=== PATIENT | male | born 1960 | race Caucasian/White ===

== ENCOUNTER → 2018-06-03 16:47 | Outpatient (CLI) | payer OTHER, MEDICARE, SELFPAY ==
[2018-06-03 17:44] LABS: Amphetamine/Metha Screen,Urine Negative ng/mL (<1000); Barbiturates Screen,Urine Negative ng/mL (<200); Benzodiazepines Screen,Urine Negative ng/mL (<200); Cannabinoid Screen,Urine Negative ng/mL (<50); Cocaine Screen,Urine Negative ng/mL (<300); Methadone Screen,Urine Negative ng/mL (<300); Opiate Screen,Urine Positive ng/mL (<300); Phencyclidine Screen,Urine Negative ng/mL (<25)
[2018-06-07 18:27] LABS: Gabapentin,Urine >800.0 ug/mL (.)
[2018-06-15 23:06] LABS: Codeine Negative (Cutoff=100); Hydrocodone Positive (.); Hydromorphone Negative (Cutoff=100); Morphine Negative (Cutoff=100)
[2018-06-16 05:24] LABS: Opiates Positive (.)
== END ==
PROVIDERS: PCP Physical Medicine & Rehabilitation; Visit Provider Physical Medicine & Rehabilitation
DX: M54.5 Low back pain (principal)
CPT/HCPCS: 80305; 80307; 80361; 80365; G0480

== ENCOUNTER → 2019-05-06 14:56 | Outpatient (CLI) | payer OTHER, SELFPAY ==
[2019-05-06 16:21] LABS: Amphetamine/Metha Screen,Urine Negative ng/mL (<1000); Barbiturates Screen,Urine Negative ng/mL (<200); Benzodiazepines Screen,Urine Negative ng/mL (<200); Cannabinoid Screen,Urine Negative ng/mL (<50); Cocaine Screen,Urine Negative ng/mL (<300); Methadone Screen,Urine Negative ng/mL (<300); Opiate Screen,Urine Positive ng/mL (<300); Phencyclidine Screen,Urine Negative ng/mL (<25)
[2019-05-10 17:00] LABS: Gabapentin,Urine >800.0 ug/mL (.)
== END ==
PROVIDERS: Visit Provider Physical Medicine & Rehabilitation
DX: M54.5 Low back pain (principal)
CPT/HCPCS: 80305; 80307

== ENCOUNTER → 2020-04-13 16:34 | Outpatient (CLI) | payer OTHER, SELFPAY ==
[2020-04-13 20:31] LABS: Amphetamine/Metha Screen,Urine Negative ng/ml (<1000); Benzodiazepines Screen,Urine Negative ng/ml (<200)
[2020-04-13 20:32] LABS: Barbiturates Screen,Urine Negative ng/ml (<200); Methadone Screen,Urine Negative ng/ml (<300)
[2020-04-13 20:33] LABS: Cannabinoid Screen,Urine Negative ng/ml (<50)
[2020-04-13 20:34] LABS: Cocaine Screen,Urine Negative ng/ml (<300); Opiate Screen,Urine Positive ng/ml (<300)
[2020-04-13 20:35] LABS: Phencyclidine Screen,Urine Negative ng/ml (<25)
[2020-04-20 13:28] LABS: Gabapentin,Urine >800.0 ug/mL (.)
== END ==
PROVIDERS: Visit Provider Physical Medicine & Rehabilitation
DX: M54.5 Low back pain (principal); Z79.899 Other long term (current) drug therapy; Z02.89 Encounter for other administrative examinations
CPT/HCPCS: 80305; 80307

== ENCOUNTER → 2021-04-24 11:03 | Outpatient (CLI) | payer OTHER, SELFPAY ==
[2021-04-27 00:04] LABS: Gabapentin,Urine >800.0 ug/mL (.)
== END ==
PROVIDERS: Visit Provider Physical Medicine & Rehabilitation
DX: M54.5 Low back pain (principal)
CPT/HCPCS: 80307

== ENCOUNTER 2021-11-24 12:23 | Emergency (ER) | payer MEDICARE, SELFPAY ==
--- NOTE | 2021-11-24 13:59 | XR_ITS ---
FINAL REPORT CLINICAL HISTORY: cough, sob FINDINGS: TWO VIEWS OF THE CHEST The heart is normal in size. The mediastinum is unremarkable. There is a small hiatal hernia. The lungs are clear. There is no pneumothorax. IMPRESSION: No acute cardiopulmonary process. Reviewed, Interpreted and Dictated by Saji Mason MD Transcribed by Gi Ricks Authenticated by Saji Mason MD on 11/24/2021 03:40:33 PM [facility]
[2021-11-24 14:03] VITALS: BP 162/98; PULSE 106; RESP 21; TEMP 36.7; O2SAT 95; BMI 34.7
--- NOTE | 2021-11-24 14:25 | HMH.EDUTC ---
[facility] [place] Disposition Clinical Impression: Acute bronchitis Qualifiers: Bronchitis organism: unspecified organism Qualified Code(s): J20.9 - Acute bronchitis, unspecified Sinusitis Qualifiers: Sinusitis location: unspecified location Chronicity: acute Recurrence: non-recurrent Qualified Code(s): J01.90 - Acute sinusitis, unspecified Disposition: Home, Self-Care Condition on Discharge: Good Instructions: Acute Bronchitis, DI for Sinusitis, DI for Acute Bronchitis Additional Instructions: Drink plenty of fluids. Take tylenol or ibuprofen for pain or fever. Take the medications as directed. Follow up with your regular doctor. GO TO THE ER FOR ANY WORSENING SYMPTOMS Prescriptions: Benzonatate [Benzonatate 100mg cap] 100 mg PO TIDP PRN #30 cap PRN Reason: Cough Transmission Status: Received by [facility] # methylPREDNISolone [Medrol] 4 mg PO DIRECTED 6 Days #21 packet Transmission Status: Received by [facility] # Azithromycin [Z-Zander 250mg Tab*] 250 mg PO UD DOSE PK #6 tab Transmission Status: Received by [facility] # Referrals: Provider,Referral, [Primary Care Provider] - Time of Disposition: 14:39 Medical Decision Making - Medical Records Medical records reviewed: No: I reviewed the patient's medical records. - Declan Inquiry Pt receiving controlled substance: No Vital Signs: 11/24/21 14:03 11/24/21 14:44 Temperature 98.1 F 98.1 F Temperature Source Oral Pulse Rate 106 H Pulse Rate [Left] 106 H Respiratory Rate 21 21 Blood Pressure 162/98 H Blood Pressure [Right Arm] 162/98 H Blood Pressure Mean [Right Arm] 119 02 Sat by Pulse Oximetry 95 [facility] [place] HPI - General Stated complaint: chest weezing Time Seen by Provider: 11/24/21 14:26 Mode of Arrival: Ambulatory Source of Information: Patient Limitations: No Limitations Description of Symptoms (Recalled from Triage Doc. by RN): pt c/o chest congestion, nasal drainage and difficulty breathing while laying down. HEENT Symptoms (Recalled from RN notes): Yes Resp Symptoms (Recalled from RN notes): Yes Skin Symptoms (Recalled from RN notes): No MS Symptoms (Recalled from RN notes): No Functional Status (Recalled from RN notes): wnl - History of Present Illness Provider Complaint: He states that for the past 2 weeks he has had chest congestion, wheezing, a productive cough. - Related Data Previous Rx's Medication Instructions Recorded Azithromycin [Z-Zander 250mg Tab*] 250 mg PO UD DOSE PK #6 tab 11/24/21 Benzonatate [Benzonatate 100mg 100 mg PO TIDP PRN #30 cap 11/24/21 cap] methylPREDNISolone [Medrol] 4 mg PO DIRECTED 6 Days #21 11/24/21 packet Allergies Allergy/AdvReac Type Severity Reaction Status Date / Time PENICILLIN Allergy Intermediate I-ITCHING Uncoded 09/17/17 15:10 - Worker's Comp Is this a Worker's Comp case?: No [facility] History - Hepatitis A Screen Drug use history?: No High risk sexual behaviors?: No History of sexually transmitted infection?: No Currently employed?: No Childcare worker?: No Do you have indoor plumbing?: Yes Do you have electricity?: Yes Attestation statement:: This patient has been screened for Hepatitis A risk factors. I have reviewed the patient's past medical history: Yes ROS Obtained: Yes All systems reviewed & no additional complaints - Constitutional Constitutional: Reports system reviewed and no additional complaints, except as docu - Eyes Eyes: Reports system reviewed and no additional complaints, except as docu - ENT Ears, Nose, Mouth, and Throat: Reports system reviewed and no additional complaints, except as docu - Cardiovascular Cardiovascular: Reports system reviewed and no additional complaints, except as docu - Respiratory Respiratory: Reports system reviewed and no additional complaints, except as docu Physical Exam - General General appearance: alert, in no apparent distress
[2021-11-24 14:44] VITALS: BP 162/98; PULSE 106; RESP 21; TEMP 36.7
== END 2021-11-24 14:45 | disposition home or self-care (01) ==
PROVIDERS: Emergency Provider Nurse Practitioner Family
DX: J20.9 Acute bronchitis, unspecified (principal); J01.90 Acute sinusitis, unspecified
CPT/HCPCS: G0463; 71046; 99202

== ENCOUNTER → 2022-02-08 10:01 | Outpatient (POV) | payer OTHER, SELFPAY ==
[2022-02-08 10:21] VITALS: BP 155/103; PULSE 107; RESP 18; TEMP 36.7; O2SAT 100; BMI 87.1
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
== END ==
PROVIDERS: Visit Provider Student in an Organized Health Care Education/Training Program
DX: M79.604 Pain in right leg (principal); Z89.512 Acquired absence of left leg below knee
CPT/HCPCS: 99202; G0463

== ENCOUNTER 2023-07-27 18:45 | Emergency (ER) | payer SELFPAY ==
[2023-07-27 18:47] VITALS: BP 146/91; PULSE 128; RESP 16; TEMP 36.8; O2SAT 97; BMI 36.5
--- NOTE | 2023-07-27 19:01 | XR_ITS ---
PROCEDURE INFORMATION: Exam: XR Chest Exam date and time: 07/27/2023 7:25 PM Age: 63 years old Clinical indication: Dyspnea TECHNIQUE: Imaging protocol: Radiologic exam of the chest. Views: 1 view. COMPARISON: CR XR CHEST 2V 11/24/2021 2:02 PM FINDINGS: Lungs: Normal. Pleural spaces: Normal No pleural effusion. No pneumothorax. Heart/Mediastinum: Normal. No cardiomegaly. Vasculature: Tortuous atherosclerotic thoracic aorta. Bones/joints: Unremarkable. IMPRESSION: No acute findings.
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
--- NOTE | 2023-07-27 19:12 | ECG_ITS ---
APPROVED REPORT Exam: Resting ECG HR:122 bpm ECG Measurements Heart Rate 122 AXES DE 169 P 63 QRSd 105 QRS -78 QT 330 T 49 QTc 402 Conclusion SINUS TACHYCARDIA LEFT AXIS DEVIATION [QRS AXIS < -30] PATTERN CONSISTENT WITH PULMONARY DISEASE INCOMPLETE RIGHT BUNDLE BRANCH BLOCK [90+ ms QRS DURATION, TERMINAL R IN V1/V2, 40+ ms S IN I/aVL/V4/V5/V6] ABNORMAL ECG UNCONFIRMED REPORT Electronically signed by : Gaston Marino MD 07/28/2023 08:37:38
[2023-07-27 19:25] LABS: Chloride 114 mmol/L (98-107)
[2023-07-27 19:26] LABS: Sodium 147 mmol/L (136-145)
[2023-07-27 19:28] LABS: Alanine Aminotransferase 58 U/L (12-78); Alkaline Phosphatase 74 U/L (38-126); Aspartate Amino Transferase 72 U/L (17-59); Bilirubin,Total 0.6 mg/dl (0.2-1.3); Blood Urea Nitrogen 11 mg/dl (9-20); Creatinine Clearance Estimated 118 mL/min (50-200); Estimated Glomerular Filt Rate 76 ml/min (>60); GFR (African American) 92 ML/MIN (>60)
[2023-07-27 19:29] LABS: Albumin Level 4.8 g/dl (3.5-5.0); Albumin/Globulin Ratio 1.3 (1.1-1.8); Carbon Dioxide 21 mmol/L (22.0-30.0); Globulin 3.6 g/dL (1.3-3.2); Glucose 122 mg/dl (74-100); Total Protein,Serum 8.4 g/dl (6.3-8.2)
[2023-07-27 19:31] LABS: Basophils % 0.6 % (0.1-2.0); Eosinophils # 0.1 K/mm3 (0.0-0.4); Ethyl Alcohol 171 mg/dl (0-10); Hematocrit 50.2 % (42.0-52.0); Hemoglobin 16.8 g/dL (14.1-18.0); Lymphocytes # 2.3 K/mm3 (0.7-4.5); Lymphocytes % 30.6 % (10-50); Mean Corpuscular HGB Conc 33.5 g/dL (31.8-35.4); Mean Corpuscular Hemoglobin 31.6 pg (27.0-31.2); Mean Corpuscular Volume 94.4 fl (80-94); Mean Platelet Volume 8.6 fl (7.4-10.4); Monocytes # 0.5 K/mm3 (0.1-1.0); Monocytes % 6.1 % (1.7-9.3); Neutrophils # 4.6 K/mm3 (1.8-7.8); Neutrophils % 61.7 % (37.0-80.0); Platelet Count 280 K/mm3 (142-424); Red Blood Count 5.32 M/mm3 (4.60-6.20); Red Cell Distribution Width 13.8 % (11.5-17.5); White Blood Count 7.4 K/mm3 (4.8-10.8)
--- NOTE | 2023-07-27 19:44 | PC.NURSE ---
in room talking with patient at this time.
[2023-07-27 19:53] VITALS: BP 137/87; PULSE 107; RESP 16; TEMP 36.8; O2SAT 97
== END 2023-07-27 19:54 ==
PROVIDERS: Emergency Provider Student in an Organized Health Care Education/Training Program
DX: S39.011A Strain of muscle, fascia and tendon of abdomen, initial encounter (principal); R00.0 Tachycardia, unspecified; F10.929 Alcohol use, unspecified with intoxication, unspecified; F17.210 Nicotine dependence, cigarettes, uncomplicated; W22.8XXA Striking against or struck by other objects, initial encounter
CPT/HCPCS: 71045; 80053; 85025; 93005; 96360; 99284

== ENCOUNTER 2024-11-06 20:25 | Emergency (ER) | payer SELFPAY ==
[2024-11-06] VITALS (7 sets, daily range): BP systolic 138–148; BP diastolic 74–111; PULSE 72–153; RESP 18–20; TEMP 36.8–36.9; O2SAT 92–98; BMI 34.9
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
[2024-11-06] MEDS: TET/DIPHTH/PERT-ADULT 0.5ML SYRINGE 0.5 ML IM (21:40)
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
--- NOTE | 2024-11-06 22:32 | ECG_ITS ---
APPROVED REPORT Exam: Resting ECG HR:130 bpm ECG Measurements Heart Rate 130 AXES ID 140 P 66 QRSd 93 QRS -76 QT 303 T 39 QTc 380 Conclusion SINUS TACHYCARDIA INCOMPLETE RIGHT BUNDLE BRANCH BLOCK [90+ ms QRS DURATION, TERMINAL R IN V1/V2, 40+ ms S IN I/aVL/V4/V5/V6] POSSIBLE ANTERIOR MYOCARDIAL INFARCTION , OF INDETERMINATE AGE [30 ms Q WAVE IN V3/V4, OR R < 0.2 mV IN V4] INFERIOR MYOCARDIAL INFARCTION , PROBABLY OLD [40+ ms Q WAVE AND/OR ST/T ABNORMALITY IN II/aVF] No STEMI Electronically signed by : JOSEPH STEPHENSON, 11/07/2024 00:15:19
--- NOTE | 2024-11-06 22:37 | PC.NURSE ---
Pt to CT scan via wheelchair
--- NOTE | 2024-11-06 23:01 | PC.NURSE ---
Xray done at bedside
[2024-11-06] MEDS: diazePAM 5MG TABLET 5 MG PO (23:41)
[2024-11-06] MEDS: ONDANSETRON 4MG ODT 4 MG SL (23:41)
[2024-11-06] MEDS: ACETAMINOPHEN 500MG TAB 1000 MG PO ×2 (23:42→23:52)
[2024-11-06] MEDS: IBUPROFEN 400 MG TABLET 800 MG PO ×2 (23:43→23:52)
--- NOTE | 2024-11-06 23:53 | PC.NURSE ---
Patient in room waiting to d/c with law enforcement.
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
== END 2024-11-07 00:06 | disposition home or self-care (01) ==
PROVIDERS: Emergency Provider Emergency Medicine
DX: S20.219A Contusion of unspecified front wall of thorax, initial encounter (principal); S01.81XA Laceration without foreign body of other part of head, initial encounter; S02.2XXA Fracture of nasal bones, initial encounter for closed fracture; F10.929 Alcohol use, unspecified with intoxication, unspecified; R22.0 Localized swelling, mass and lump, head; R07.82 Intercostal pain; Z23 Encounter for immunization; Y04.0XXA Assault by unarmed brawl or fight, initial encounter; Y93.89 Activity, other specified; Y92.9 Unspecified place or not applicable
CPT/HCPCS: 12011; G0168; 70450; 70486; 71250; 72125; 72128; 72131; 74176; 90471; 90715; 93005; 96374; 99284; Q0162